=== PATIENT | female | born 1995 | race Caucasian/White ===

== ENCOUNTER → 2018-04-18 10:21 | Outpatient (CLI) | payer MEDICAID, SELFPAY ==
[2018-04-18 11:00] LABS: Basophils % 0.6 % (0.1-2.0); Eosinophils # 0.2 K/mm3 (0.0-0.4); Eosinophils % 2.6 % (0.1-12.0); Hematocrit 45.4 % (37.0-47.0); Hemoglobin 14.7 g/dL (12.2-16.2); Lymphocytes # 2.7 K/mm3 (0.7-4.5); Lymphocytes % 40.3 K/mm3 (10-50); Mean Corpuscular HGB Conc 32.4 g/dL (31.8-35.4); Mean Corpuscular Hemoglobin 29.5 pg (27.0-31.2); Mean Platelet Volume 7.8 fl (7.4-10.4); Monocytes # 0.3 K/mm3 (0.1-1.0); Neutrophils # 3.5 K/mm3 (1.8-7.8); Neutrophils % 52.5 % (37.0-80.0); Platelet Count 262 K/mm3 (142-424); Red Blood Count 4.99 M/mm3 (4.20-5.40); Red Cell Distribution Width 12.6 % (11.5-17.5); White Blood Count 6.7 K/mm3 (4.8-10.8)
[2018-04-18 11:44] LABS: Free Thyroxine Index 2.5 ug/dL (5.93-13.13); T4 (Thyroxine) 7.6 ug/dl (4.7-13.3); Thyroid Stimulating Hormone 1.72 uIU/ml (0.358-3.740); Triiodothryronine (T3) Uptake 33 % (31-39)
== END ==
PROVIDERS: Visit Provider Nurse Practitioner Obstetrics & Gynecology
DX: N92.0 Excessive and frequent menstruation with regular cycle (principal); R10.2 Pelvic and perineal pain
CPT/HCPCS: 36415; 84436; 84443; 84479; 85025

== ENCOUNTER → 2018-04-22 08:59 | Outpatient (CLI) | payer MEDICAID, SELFPAY ==
--- NOTE | 2018-04-22 09:02 | US_ITS ---
US transvaginal HISTORY: Chronic bleeding after childbirth ITS.REASON: US T/V- Pelvic pain ORDERING PHYSICIAN: Bulmaro Nevarez MD PATIENT AGE: 22 years Comparison: None FINDINGS: The uterus measures 7.8 x 3.2 x 4.2 cm with a combined endometrial thickness of 3 mm. No uterine mass evident. The left ovary measures 3.2 x 1.6 cm and contains small follicles. The right ovary is 3 x 2.2 cm also containing small follicles. No cul-de-sac fluid evident. IMPRESSION: 1. Small bilateral ovarian follicles. 2. Otherwise negative pelvic ultrasound
== END ==
PROVIDERS: Family Provider Nurse Practitioner Family; PCP Physician Assistant; Visit Provider Nurse Practitioner Obstetrics & Gynecology
DX: R10.2 Pelvic and perineal pain (principal); R10.9 Unspecified abdominal pain
CPT/HCPCS: 76830

== ENCOUNTER → 2020-01-13 08:25 | Outpatient (CLI) | payer OTHER, SELFPAY ==
--- NOTE | 2020-01-13 08:28 | US_ITS ---
PROCEDURE: US TRANSVAGINAL CLINICAL INDICATION: pelvic pain COMPARISON: TRANVAG US transvaginal from 04/22/2018 FINDINGS: UTERUS: 8cm x 4cmx 3cm with a combined endometrial thickness of 2.8mm LEFT OVARY: 9vsy5oiz3.6cm with a volume of 4.5ml. RIGHT OVARY: [id number] with a volume of 8.9ml. Small bilateral ovarian follicles are noted. No cul-de-sac fluid. There is bilateral ovarian blood flow IMPRESSION: Negative pelvic ultrasound Dictated by: Paul Narvaez MD 01/13/2020 12:49 Electronically signed by Paul Narvaez MD in [place] 01/13/2020 12:49
== END ==
PROVIDERS: PCP Internal Medicine Adolescent Medicine; Visit Provider Nurse Practitioner Obstetrics & Gynecology
DX: R10.2 Pelvic and perineal pain (principal)
CPT/HCPCS: 76830

== ENCOUNTER → 2020-11-14 11:08 | Outpatient (CLI) | payer OTHER, SELFPAY ==
--- NOTE | 2020-11-14 11:14 | US_ITS ---
PROCEDURE: US TRANSVAGINAL CLINICAL INDICATION: US T/V- pelvic pain COMPARISON: US US TRANSVAGINAL from 01/13/2020 FINDINGS: UTERUS: 8cm x 4cmx 3cm with a combined endometrial thickness of 3.6mm LEFT OVARY: 5lby6gos2.2cm with a volume of 3.1ml. RIGHT OVARY: [id number] with a volume of 6.3ml. No adnexal mass. Blood flow is present in both ovaries. No uterine mass. IMPRESSION: Negative pelvic ultrasound Dictated by: Paul Narvaez MD 11/14/2020 19:03 Paul Narvaez MD in [facility] 11/14/2020 19:03
== END ==
PROVIDERS: PCP Internal Medicine Adolescent Medicine; Visit Provider Obstetrics & Gynecology
DX: R10.2 Pelvic and perineal pain (principal)
CPT/HCPCS: 76830

== ENCOUNTER → 2020-12-07 09:32 | Outpatient (CLI) | payer OTHER, SELFPAY ==
[2020-12-07 10:09] LABS: Basophils # 0.1 K/mm3 (0-0.2); Basophils % 0.8 % (0.1-2.0); Eosinophils # 0.2 K/mm3 (0.0-0.4); Eosinophils % 1.8 % (0.1-12.0); Hematocrit 44.1 % (37.0-47.0); Hemoglobin 14.8 g/dL (12.2-16.2); Lymphocytes # 2.9 K/mm3 (0.7-4.5); Lymphocytes % 33.1 % (10-50); Mean Corpuscular HGB Conc 33.5 g/dL (31.8-35.4); Mean Corpuscular Hemoglobin 31.9 pg (27.0-31.2); Mean Corpuscular Volume 95.5 fl (81-99); Mean Platelet Volume 8.1 fl (7.4-10.4); Monocytes # 0.3 K/mm3 (0.1-1.0); Monocytes % 3.4 % (1.7-9.3); Neutrophils # 5.3 K/mm3 (1.8-7.8); Platelet Count 236 K/mm3 (142-424); Red Blood Count 4.62 M/mm3 (4.20-5.40); Red Cell Distribution Width 13.2 % (11.5-17.5); White Blood Count 8.7 K/mm3 (4.8-10.8)
[2020-12-07 10:30] LABS: Chloride 109 mmol/L (98-107)
[2020-12-07 10:31] LABS: Potassium 3.7 mmoL/L (3.5-5.1)
[2020-12-07 10:32] LABS: Sodium 142 mmol/L (136-145)
[2020-12-07 10:33] LABS: Alanine Aminotransferase 18 U/L (12-78); Anion Gap 12.7 mEq/L (5-15); Aspartate Amino Transferase 29 U/L (14-36); Blood Urea Nitrogen 12 mg/dl (7-17); Carbon Dioxide 24 mmol/L (22.0-30.0); Estimated Glomerular Filt Rate 103 ml/min (>60); GFR (African American) 124 ML/MIN (>60)
[2020-12-07 10:34] LABS: Albumin Level 5.1 g/dl (3.5-5.0); Albumin/Globulin Ratio 1.8 (1.1-1.8); Calcium 10.3 mg/dl (8.4-10.2); Globulin 2.8 g/dL (1.3-3.2); Glucose 96 mg/dl (74-100); Total Protein,Serum 7.9 g/dl (6.3-8.2)
[2020-12-07 10:35] LABS: Alkaline Phosphatase 70 U/L (38-126); Bilirubin,Total 0.6 mg/dl (0.2-1.3)
[2020-12-07 10:45] LABS: HCG Qualitative, Serum Negative (Negative)
[2020-12-07 10:51] LABS: Coronavirus 19 IgG Antibody Negative (Negative); Coronavirus 19 IgM Antibody Negative (Negative)
[2020-12-07 11:42] LABS: Amphetamine/Metha Screen,Urine Negative ng/ml (<1000); Barbiturates Screen,Urine Negative ng/ml (<200)
[2020-12-07 11:43] LABS: Benzodiazepines Screen,Urine Negative ng/ml (<200)
[2020-12-07 11:44] LABS: Cannabinoid Screen,Urine Negative ng/ml (<50); Cocaine Screen,Urine Negative ng/ml (<300)
[2020-12-07 11:45] LABS: Methadone Screen,Urine Negative ng/ml (<300); Phencyclidine Screen,Urine Negative ng/ml (<25)
[2020-12-07 11:46] LABS: Opiate Screen,Urine Negative ng/ml (<300)
== END ==
PROVIDERS: Visit Provider Obstetrics & Gynecology
DX: Z01.818 Encounter for other preprocedural examination (principal); Z20.822 Contact with and (suspected) exposure to COVID-19; R10.2 Pelvic and perineal pain; N94.10 Unspecified dyspareunia
CPT/HCPCS: 36415; 80053; 80305; 84703; 85025; 86328

== ENCOUNTER 2020-12-09 08:25 | Day surgery (SDC) | payer OTHER, SELFPAY ==
[2020-12-06 14:06] VITALS: BMI 19.5
[2020-12-09] VITALS (12 sets, daily range): BP systolic 113–151; BP diastolic 69–93; PULSE 72–95; RESP 16–18; TEMP 36.4–43; O2SAT 97–100
--- NOTE | 2020-12-09 09:16 | P.PN_ITS ---
[facility] Anesthesia Checklist - Patient Identification Patient Identification: Arm Band - Structural Data Admitted From: Home Planned Operative Procedure/s: Diagnostic Laparoscopy, Bilateral Tubal Ligation Consent for Planned Operative Procedure(s) Verified: Yes Verified Documents: Surgical Consent, History and Physical - NPO Status Verified Time NPO: 00:00 - Additional verifications Anesthesia Reactions: Yes (pt reports having a hard time coming out of anesthesia) Hx Blood Transfusions: No Blood Transfusion Reaction: No - Airway Assessment C-Spine Mobility Assessed: Yes (mp2) TMJ Mobility Assessed: Yes Dentition: Good Dentition - Neurological Assessment Level of Consciousness: Awake, Alert - Anesthesia Plan Anesthesia Risk discussed: Yes Anesthesia Plan: Verified ASA Class: II Anesthesia Type: General [facility] History I have reviewed the patient's past medical history: Yes Medical History: Reports:: Anxiety, Depression, Migraine Denies:: Cancer, Diabetes Mellitus Type 1, Diabetes Mellitus Type 2, Hyperlipidemia, Hypertension, MRSA, Seizures *Have you ever received a pneumonia vaccine?: No *Have you received a flu vaccine this season?: Yes Other Medical History: Denies: Blood Transfusion Reaction Anesthesia experience/problems:: nac Laterality Cases: Bilateral: Tonsillectomy Amputation: No Fractures: No - *Social History Last grade of school completed: GED Smoking Status: Current every day smoker Tobacco Type: cigarettes # Packs/Day (cigarettes): 1 Alcohol Intake: never Substance Use Type: denies use *Occupational Status:: unemployed *Travel in the last 8 weeks: None - Psychiatric History Pschychiatric History:: Reports:: Anxiety, Depression Family Hx:: Cancer, Diabetes, Thyroid Disorder, Kidney Disease, Hypertension, Substance abuse, Alcoholism, Mental illness, Asthma, Coronary Artery Disease, Heart Attack
--- NOTE | 2020-12-09 12:38 | HMH.OPNOTE ---
Date of procedure: 12/09/20 Pre-op Diagnosis:: 1. Pelvic pain 2. Dyspareunia 3. Undesired fertiliity Post-op Diagnosis:: same Procedure performed:: Diagnostic laparoscopy Bilateral tubal occlusion Surgeon:: Karrie Durham MD WORT EXTRACTOR:: Dirk Whitt Anesthesia: GETA Estimated blood loss (mL): 10 Operative findings:: normal appearing uterus normal appearing ovaries bilaterally normal appearing fallopian tubes bilaterally hypervascularity anterior lower pelvis and bladder no adhesions and no evidence of endometriosis Operative note:: The patient was taken to the operating room and general anesthesia was administered. She was prepped/draped in lithotomy position. A uterine manipulator was placed without difficulty. Gloves were changed and attention was turned to the abdomen. A 5mm skin incision was made in the umbilical fold and the Verees needle was inserted through the peritoneum and into the abdominal cavity in standard fashion. The abdomen was insufflated with CO2 gas. A 5mm non-bladed trocar was inserted directly into the abdominal cavity and appropriate placement was confirmed with the laparoscope. No intra-abdominal injuries occurred during entry into the abdominal cavity, as confirmed visually with the laparoscope. The patient was placed in trendelenburg and a 8mm skin incision was made 2cm above the pubic symphysis. A 8mm non-bladed trocar was inserted under direct visualization, without complication. The uterus was elevated out of the pelvis in order to better visualize the anatomy. A survey of the pelvis and abdomen revealed generally normal pelvic anatomy, with no abnormalities noted with regards to uterus, ovaries and fallopian tubes. The anterior pelvic wall and bladder showed a pronounced increase in vascularity, but there was no evidence of endometriosis and no adhesions noted. No gross abnormalities noted in bowel. The uterus was angled towards the patient right and the left fallopian tube was grasped and a Filshie clip was placed over the tube. The clip was noted to completely occlude the tube. The uterus was then angled towards the patient left, and the right fallopian tube was grasped and a Filshie clip was placed over the tube. The clip was noted to completely occlude the tube. The uterine manipulator was removed. The abdomen was then evacuated of gas and all trocars removed. The skin incisions were closed with Dermabond. The patient tolerated the procedure well. Sponge/lap/needle/instrument counts were correct at conclusion of procedure. She was taken out of lithotomy position and awakened from anesthesia, and was taken to the recovery room in stable condition. Condition: stable Disposition: PACU Specimens:: none Complications:: none
--- NOTE | 2020-12-13 09:14 | HMH.ANESII ---
[facility] Anesthesia Record Part II Discharge Time: 12:04 Destination: Surgical Day Care (OP Surgery) PACU nurse assessment reviewed?: Yes Patient Condition:: Good Anesthesia Complications:: None Swallowing reflex intact?: Yes Cyanosis?: No Blood Pressure: 140/82 Pulse Rate: 83 Temperature: 97.6 F Mental Status: Alert & Oriented Pain level:: 4 Nausea and/or vomitting:: None Intake, IV Amount: 0
[2020-12-13 09:15] VITALS: BP 140/82; PULSE 83; TEMP 36.4
== END 2020-12-09 12:35 | disposition home or self-care (01) ==
LOC: OR 08:28
PROVIDERS: PCP Internal Medicine Adolescent Medicine; Visit Provider Obstetrics & Gynecology
PROC: (CPT 49320; principal; 2020-12-09 09:45)
DX: N94.819 Vulvodynia, unspecified (principal); N91.2 Amenorrhea, unspecified; N94.10 Unspecified dyspareunia; Z30.2 Encounter for sterilization; G43.909 Migraine, unspecified, not intractable, without status migrainosus; F41.9 Anxiety disorder, unspecified; F32.9 Major depressive disorder, single episode, unspecified; Z79.890 Hormone replacement therapy; Z72.0 Tobacco use; Z83.3 Family history of diabetes mellitus; Z83.49 Family history of other endocrine, nutritional and metabolic diseases; Z82.49 Family history of ischemic heart disease and other diseases of the circulatory system
CPT/HCPCS: 58671; 96374; J2405

== ENCOUNTER 2022-07-14 13:26 | Emergency (ER) | payer OTHER, SELFPAY ==
[2022-07-14 14:07] VITALS: BP 100/63; PULSE 103; RESP 15; TEMP 36.5; O2SAT 100; BMI 20.3
[2022-07-14 14:14] LABS: UTC Strep Screen (Rapid) Negative (Negative)
--- NOTE | 2022-07-14 14:21 | EXP.UTC ---
Discharge Plan Disposition Patient Disposition: Home, Self-Care Condition: Good Prescriptions Prescriptions: New amoxicillin [amoxicillin] 500 mg tablet 500 mg PO TID 10 Days Qty: 30 0RF [id number] [Bromfed DM] 2-30-10 mg/5 mL Syrup 5 ml PO Q6H PRN (Reason: Cough) Qty: 240 0RF Referrals Follow up/Referrals: Mario Han MD [Primary Care Provider] - See instructions Activity Restrictions/Add. Instructions Additional Instructions/Restrictions: Drink plenty of fluids. Take tylenol or ibuprofen for pain or fever. Take the medications as directed. Follow up with your regular doctor. GO TO THE ER FOR ANY WORSENING SYMPTOMS Clinical Impressions Clinical Impression: Bronchitis, Pharyngitis Instructions Patient Instructions: DI for Pharyngitis/Tonsillopharyngitis -- Adult Discharge ED Provider: Gilmer Shane [facility] HPI General Stated complaint: Sore throat; cough;congestion Mode of Arrival: Ambulatory Source of Information: Patient Limitations: No Limitations Time Seen by Provider: 07/14/22 13:48 Description of Symptoms (Recalled from Triage Doc. by RN): pt comes in with c/o cough, congestion, sore throat. symptoms began 07/12/22. HEENT Symptoms (Recalled from RN notes): Yes Resp Symptoms (Recalled from RN notes): Yes Skin Symptoms (Recalled from RN notes): No MS Symptoms (Recalled from RN notes): No Functional Status (Recalled from RN notes): n/a History of Present Illness Provider Complaint: She states that for the past 2 days she has had sore throat and malaise. Related Data Previous Rx's Medication Instructions Recorded amoxicillin 500 mg tablet 500 mg PO TID 10 days #30 tabs 07/14/22 [id number]-[id number]-EG 5 ml PO Q6H PRN Cough #240 mL 07/14/22 2 mg-30 mg-10 mg/5 mL oral syrup (Bromfed DM) Allergies Allergy/AdvReac Type Severity Reaction Status Date / Time milk Allergy Bloating Verified 07/14/22 14:10 Worker's Comp Is this a Worker's Comp case?: No PFSH PFSH Social History Smoking Status: Current every day smoker tobacco type: cigarettes packs per day: 1 alcohol intake: never substance use type: denies use current occupational status: unemployed Travel in the last 8 weeks: None ROS Obtained: Yes All systems reviewed & no additional complaints except as documented Constitutional Constitutional: Reports chills and Reports fever(s) Eyes Eyes: Denies eye discharge ENT Ears, Nose, Mouth, and Throat: Reports as per HPI Cardiovascular Cardiovascular: Denies chest pain Respiratory Respiratory: Denies chest congestion and Reports cough Gastrointestinal Gastrointestingal: Reports nausea; Denies abdominal pain, constipation, cramping, diarrhea or vomiting Musculoskeletal Musculoskeletal: Denies arthralgias Integumentary/Breasts Skin/Breast: Denies rash Neurologic Neurologic: Denies paresthesias Physical Exam General General appearance: alert and in no apparent distress Head Head exam: atraumatic, normocephalic and normal inspection Eye Eye exam: Present normal appearance, PERRL and EOMI ENT ENT exam: Present mucous membranes moist and normal external ear exam Expanded ENT Exam TM/Canal exam: Bilateral TM: erythema and bulging Nose exam: Absent sinus tenderness Mouth exam: Present normal external inspection; Absent drooling Teeth exam: Present normal inspection Throat exam: Present tonsillar erythema, tonsillomegaly and tonsillar exudate Neck Neck exam: Present normal inspection, full ROM and trachea midline; Absent tenderness, meningismus or lymphadenopathy Chest Chest inspection: Present normal inspection and symmetric chest wall rise; Absent tenderness Respiratory Respiratory exam: Present normal lung sounds bilaterally; Absent respiratory distress, wheezes or stridor Cardiovascular Cardiovascular exam: Present regular rate and normal rhythm; Absent systolic murmur or
[2022-07-14 14:58] VITALS: BP 100/63; PULSE 103; RESP 15; TEMP 36.5
== END 2022-07-14 15:03 | disposition home or self-care (01) ==
PROVIDERS: Nurse Practitioner Family; Emergency Provider Emergency Medicine; PCP Internal Medicine Adolescent Medicine
DX: J20.9 Acute bronchitis, unspecified (principal); J02.9 Acute pharyngitis, unspecified; F17.210 Nicotine dependence, cigarettes, uncomplicated; Z20.822 Contact with and (suspected) exposure to COVID-19
CPT/HCPCS: 87880; 99212; C9803; G0463; U0003; U0005

== ENCOUNTER 2022-10-21 15:01 | Emergency (ER) | payer OTHER, SELFPAY ==
[2022-10-21 16:50] VITALS: BP 134/78; PULSE 87; RESP 20; TEMP 36.8; O2SAT 98; BMI 18.9
[2022-10-21 16:55] LABS: UTC Influenza A Antigen Negative (Negative); UTC Influenza B Antigen Negative (Negative); UTC Strep Screen (Rapid) Negative (Negative)
--- NOTE | 2022-10-21 17:03 | EXP.UTC ---
Discharge Plan Disposition Patient Disposition: Home, Self-Care Condition: Good Prescriptions Prescriptions: New amoxicillin [amoxicillin] 500 mg tablet 500 mg PO TID 10 Days Qty: 30 0RF benzonatate [benzonatate] 100 mg capsule 100 mg PO TIDP PRN (Reason: Cough) Qty: 30 0RF methylprednisolone 4 mg Tablets,Dose Pack 4 mg PO DIRECTED Qty: 21 0RF Referrals Follow up/Referrals: Mario Han MD [Primary Care Provider] - See instructions Activity Restrictions/Add. Instructions Additional Instructions/Restrictions: Drink plenty of fluids. Take tylenol or ibuprofen for pain or fever. Take the medications as directed. Follow up with your regular doctor. GO TO THE ER FOR ANY WORSENING SYMPTOMS Clinical Impressions Clinical Impression: Pharyngitis, Acute viral syndrome Instructions Patient Instructions: DI for Pharyngitis/Tonsillopharyngitis -- Adult, DI for Viral Syndrome Discharge ED Provider: Prieto Cameron [facility] General Stated complaint: SOA, cough, sore throat Time Seen by Provider: 10/21/22 16:42 History of Present Illness Provider Complaint: She states that for the past 3 days she has had sore throat, chills, fever, cough and malaise. Related Data Previous Rx's Medication Instructions Recorded amoxicillin 500 mg tablet 500 mg PO TID 10 days #30 tabs 10/21/22 benzonatate 100 mg capsule 100 mg PO TIDP PRN Cough #30 caps 10/21/22 methylprednisolone 4 mg tablets in 4 mg PO DIRECTED #21 tabs 10/21/22 a dose pack Allergies Allergy/AdvReac Type Severity Reaction Status Date / Time milk Allergy Bloating Verified 07/14/22 14:10 [facility] Disclaimer: The information contained in this section may have been updated after the patient was seen, as this information can be updated by other users. Medical History Anxiety Cancer Depression Migraine Urinary tract infection Surgical History History of tonsillectomy History of tubal ligation Social History Smoking Status: Current every day smoker tobacco type: cigarettes packs per day: 1 alcohol intake: never substance use type: denies use current occupational status: unemployed Travel in the last 8 weeks: None ROS Obtained: Yes All systems reviewed & no additional complaints except as documented Constitutional Constitutional: Reports chills and Reports fever(s) Eyes Eyes: Denies eye discharge ENT Ears, Nose, Mouth, and Throat: Reports as per HPI Cardiovascular Cardiovascular: Denies chest pain Respiratory Respiratory: Denies chest congestion and Reports cough Gastrointestinal Gastrointestingal: Reports nausea; Denies abdominal pain, constipation, cramping, diarrhea or vomiting Musculoskeletal Musculoskeletal: Denies arthralgias Integumentary/Breasts Skin/Breast: Denies rash Neurologic Neurologic: Denies paresthesias Physical Exam General General appearance: alert and in no apparent distress Head Head exam: atraumatic, normocephalic and normal inspection Eye Eye exam: Present normal appearance, PERRL and EOMI ENT ENT exam: Present mucous membranes moist and normal external ear exam Expanded ENT Exam TM/Canal exam: Bilateral TM: erythema and bulging Nose exam: Absent sinus tenderness Mouth exam: Present normal external inspection; Absent drooling Teeth exam: Present normal inspection Throat exam: Present tonsillar erythema, tonsillomegaly and tonsillar exudate Neck Neck exam: Present normal inspection, full ROM and trachea midline; Absent tenderness, meningismus or lymphadenopathy Chest Chest inspection: Present normal inspection and symmetric chest wall rise; Absent tenderness Respiratory Respiratory exam: Present normal lung sounds bilaterally; Absent respiratory distress, wheezes or stridor Cardiovascular Cardiovascular exam: Present r
[2022-10-21 17:28] VITALS: BP 134/78; PULSE 87; RESP 20; TEMP 36.8; O2SAT 98
[2022-10-21 17:51] LABS: Adenovirus,PCR Not Detected (NotDetected); Bordetella Pertussis Not Detected (NotDetected); Chlamydophila Pneumoniae, PCR Not Detected (NotDetected); Coronavirus 19, PCR Not Detected (NotDetected); Coronavirus 229E Not Detected (NotDetected); Coronavirus NL63 Not Detected (NotDetected); Coronavirus OC43 Not Detected (NotDetected); Coronovirus HKU1,PCR Not Detected (NotDetected); Human Metapneumovirus Not Detected (NotDetected); Influenza A, PCR Not Detected (NotDetected); Influenza AH1, 2009 Not Detected (NotDetected); Influenza AH1, PCR Not Detected (NotDetected); Influenza AH3,PCR Not Detected (NotDetected); Influenza B, PCR Not Detected (NotDetected); Mycoplasma Pneumoniae, PCR Not Detected (NotDetected); Parainfluenza 1, PCR Not Detected (NotDetected); Parainfluenza 2, PCR Not Detected (NotDetected); Parainfluenza 3, PCR Not Detected (NotDetected); Parainfluenza 4, PCR Not Detected (NotDetected); Respiratory Syncytial Virus Not Detected (NotDetected)
[2022-10-22 13:25] LABS: Rhinovirus/Enterovirus Detected (NotDetected)
== END 2022-10-21 17:35 | disposition home or self-care (01) ==
PROVIDERS: Emergency Provider Nurse Practitioner Family; PCP Internal Medicine Adolescent Medicine
DX: J02.9 Acute pharyngitis, unspecified (principal); B34.9 Viral infection, unspecified
CPT/HCPCS: 87581; 87632; 87798; 87804; 87880; 99212; 99213; C9803; G0463; U0003; U0005

== ENCOUNTER 2023-05-28 20:48 | Emergency (ER) | payer SELFPAY ==
[2023-05-28 20:49] VITALS: BP 134/98; PULSE 98; RESP 18; TEMP 36.7; O2SAT 100
[2023-05-28 21:00] VITALS: BP 134/98; PULSE 114; RESP 18; O2SAT 100
--- NOTE | 2023-05-28 22:17 | PC.NURSE ---
ROUNDED ON PT NOTHING NEEDED,CALL LIGHT AT BS
[2023-05-28 22:33] VITALS: BP 115/72; PULSE 74; RESP 18; TEMP 36.6; O2SAT 100
--- NOTE | 2023-05-31 00:47 | HMH.EDGENADL ---
Discharge Plan Disposition Patient Disposition: Home, Self-Care Condition: Good Prescriptions Prescriptions: New sulfamethoxazole-trimethoprim 800-160 mg tablet 1 tab PO BID 5 Days Qty: 10 0RF No Action amoxicillin [amoxicillin] 500 mg tablet 500 mg PO TID 10 Days Qty: 30 0RF benzonatate [benzonatate] 100 mg capsule 100 mg PO TIDP PRN (Reason: Cough) Qty: 30 0RF methylprednisolone 4 mg Tablets,Dose Pack 4 mg PO DIRECTED Qty: 21 0RF Referrals Follow up/Referrals: Mario Han MD [Primary Care Provider] - See instructions Activity Restrictions/Add. Instructions Additional Instructions/Restrictions: Please follow-up with your primary care provider. Please return to the emergency department if you develop any new or worsening symptoms or become concerned for your health. Please take Bactrim as prescribed for coverage of your thumb infection. Clinical Impressions Clinical Impression: Cellulitis and abscess of finger, unspecified Instructions Patient Instructions: DI for Skin Abscess Discharge ED Provider: Brett Tobias Adult [facility] General Chief complaint: Skin/Abscess/Foreign Body Stated complaint: spot on thumb Time Seen by Provider: 05/28/23 21:05 Mode of Arrival: Ambulatory Source of Information: Patient Limitations: No Limitations Description of Symptoms (Recalled from ER Triage Doc. by RN): The pt states that about she noticed something in her right thumb and that she figured that it wouls work its self out. the pt states that now it is swollen and feels like alot of pressure and that there is a stabbing sharp pain that runs through to her elbow History of Present Illness HPI narrative: 27-year-old female presents with right thumb pain, erythema, swelling. This has been ongoing for the last couple of days. She reports no injury. Reports that it started as a black dot on the thumb pad and has proceeded to worsen. She reports pain that sometimes shoots up her thumb. She reports that she has had an abscess on her finger before, she is unsure why this has happened repeatedly. She denies any other significant medical history. Related Data Previous Rx's Medication Instructions Recorded amoxicillin 500 mg tablet 500 mg PO TID 10 days #30 tabs 10/21/22 benzonatate 100 mg capsule 100 mg PO TIDP PRN Cough #30 caps 10/21/22 methylprednisolone 4 mg tablets in 4 mg PO DIRECTED #21 tabs 10/21/22 a dose pack sulfamethoxazole 800 1 tab PO BID 5 days #10 tabs 05/28/23 mg-trimethoprim 160 mg tablet Allergies Allergy/AdvReac Type Severity Reaction Status Date / Time milk Allergy Bloating Verified 07/14/22 14:10 [facility] Disclaimer: The information contained in this section may have been updated after the patient was seen, as this information can be updated by other users. Medical History Anxiety Cancer Depression Migraine Urinary tract infection Surgical History History of tonsillectomy History of tubal ligation Social History Smoking Status: Current every day smoker tobacco type: cigarettes packs per day: 1 alcohol intake: never substance use type: denies use current occupational status: unemployed Travel in the last 8 weeks: None ROS Obtained: Yes All systems reviewed & no additional complaints except as documented Physical Exam General General appearance: alert and in no apparent distress Head Head exam: atraumatic and normocephalic Eye Eye exam: Present normal appearance, PERRL and EOMI ENT ENT exam: Present normal oropharynx and normal external ear exam Neck Neck exam: Present normal inspection and full ROM Chest Chest inspection: Present normal inspection and symmetric chest wall rise; Absent tenderness Respiratory Respiratory exam: Present normal lung sounds bilaterally;
== END 2023-05-28 22:43 | disposition home or self-care (01) ==
PROVIDERS: Emergency Provider Emergency Medicine; PCP Internal Medicine Adolescent Medicine
DX: F41.9 Anxiety disorder, unspecified (principal); L03.113 Cellulitis of right upper limb; F32.A Depression, unspecified; F17.210 Nicotine dependence, cigarettes, uncomplicated
CPT/HCPCS: 10060; 99283

== ENCOUNTER 2023-05-31 18:16 | Emergency (ER) | payer SELFPAY ==
[2023-05-31 18:35] VITALS: BP 128/88; PULSE 100; RESP 20; TEMP 36.8; O2SAT 100; BMI 19.4
--- NOTE | 2023-05-31 18:56 | EXP.UTC ---
Discharge Plan Disposition Patient Disposition: Home, Self-Care Prescriptions Prescriptions: No Action sulfamethoxazole-trimethoprim 800-160 mg tablet 1 tab PO BID 5 Days Qty: 10 0RF amoxicillin [amoxicillin] 500 mg tablet 500 mg PO TID 10 Days Qty: 30 0RF benzonatate [benzonatate] 100 mg capsule 100 mg PO TIDP PRN (Reason: Cough) Qty: 30 0RF methylprednisolone 4 mg Tablets,Dose Pack 4 mg PO DIRECTED Qty: 21 0RF Referrals Follow up/Referrals: Mario Han MD [Primary Care Provider] - See instructions Activity Restrictions/Add. Instructions Additional Instructions/Restrictions: Please bead picker antibiotic from the pharmacy. Dose of antibiotic given tonight as pharmacy is closed. If there is an issue getting your medication, please call and let us know. Call primary care for a follow up appointment on Saturday. If symptoms worsen return to the ER. Clinical Impressions Clinical Impression: Cellulitis and abscess of finger, unspecified Instructions Patient Instructions: DI for Cellulitis -- Adult, How To Perform RICE (Rest, Ice, Compress, Elevate) Discharge ED Provider: Anny Lovell [facility] General Stated complaint: Right thumb pain Mode of Arrival: Ambulatory Source of Information: Patient Limitations: No Limitations Time Seen by Provider: 05/31/23 19:00 Description of Symptoms (Recalled from Triage Doc. by RN): PATIENT C/O REDNESS AND SWELLING TO RIGHT THUMB THAT STARTED LAST SATURDAY. SHE STATES SHE WAS SEEN IN ER ON 05/28 AND HER THUMB WAS LANCED AND SHE WAS GIVEN AN ORAL ANTIBIOTIC. 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 SHE STATES SHE WAS SEEN IN ER ON 05/28 AND HER THUMB WAS LANCED AND SHE WAS GIVEN AN ORAL ANTIBIOTIC. 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 She states that she now has her insurance straightened out. Reports pharmacy would not let her pay grace for her medication. She states that she feels like she has had a low grade fever and been nauseated today. Related Data Previous Rx's Medication Instructions Recorded amoxicillin 500 mg tablet 500 mg PO TID 10 days #30 tabs 10/21/22 benzonatate 100 mg capsule 100 mg PO TIDP PRN Cough #30 caps 10/21/22 methylprednisolone 4 mg tablets in 4 mg PO DIRECTED #21 tabs 10/21/22 a dose pack sulfamethoxazole 800 1 tab PO BID 5 days #10 tabs 05/28/23 mg-trimethoprim 160 mg tablet Allergies Allergy/AdvReac Type Severity Reaction Status Date / Time milk Allergy Bloating Verified 07/14/22 14:10 Worker's Comp Is this a Worker's Comp case?: No [facility] Disclaimer: The information contained in this section may have been updated after the patient was seen, as this information can be updated by other users. Medical History Anxiety Cancer Depression Migraine Urinary tract infection Surgical History History of tonsillectomy History of tubal ligation Social History Smoking Status: Current every day smoker tobacco type: cigarettes packs per day: 1 alcohol intake: never substance use type: denies use current occupational status: unemployed Travel in the last 8 weeks: None ROS Obtained: Yes All systems reviewed & no additional complaints except as documented Constitutional Constitutional: Reports system reviewed and no additional complaints, except as documented and Reports malaise Eyes Eyes: Reports system reviewed
[2023-05-31 18:59] VITALS: BP 128/88; PULSE 100; RESP 20; TEMP 36.8; O2SAT 100
== END 2023-05-31 19:08 | disposition home or self-care (01) ==
PROVIDERS: Emergency Provider Nurse Practitioner Family; PCP Internal Medicine Adolescent Medicine
DX: L02.511 Cutaneous abscess of right hand (principal); L03.011 Cellulitis of right finger; F17.210 Nicotine dependence, cigarettes, uncomplicated; F41.9 Anxiety disorder, unspecified; F32.A Depression, unspecified
CPT/HCPCS: 99212; 99213; G0463

== ENCOUNTER 2024-04-01 14:07 | Emergency (ER) | payer SELFPAY ==
[2024-04-01 14:08] VITALS: BP 134/92; PULSE 110; RESP 18; TEMP 36.8; O2SAT 97; BMI 22.1
--- NOTE | 2024-04-01 14:29 | ED_ITS ---
<Statement entered by Christopher Durham MD - 04/02/24 07:13> I was consulted by the CAMILO, and we discussed the complexity of the problems being addressed. I approved the treatment and management plan for this patient's care in the emergency department, thus performing a substantive portion of the medical decision making. Christopher Durham MD, JENNA, FACEP Discharge Plan Disposition Patient Disposition: Home, Self-Care Condition: Good Prescriptions Prescriptions: New cephalexin 500 mg capsule 500 mg PO BID 10 Days Qty: 20 0RF No Action sulfamethoxazole-trimethoprim 800-160 mg tablet 1 tab PO BID 5 Days Qty: 10 0RF amoxicillin [amoxicillin] 500 mg tablet 500 mg PO TID 10 Days Qty: 30 0RF benzonatate [benzonatate] 100 mg capsule 100 mg PO TIDP PRN (Reason: Cough) Qty: 30 0RF methylprednisolone 4 mg Tablets,Dose Pack 4 mg PO DIRECTED Qty: 21 0RF Referrals Follow up/Referrals: Mario Han MD [Primary Care Provider] - See instructions Activity Restrictions/Add. Instructions Additional Instructions/Restrictions: There was no foreign body found on your x-rays. This is likely developing cellulitis. I have sent a prescription into your pharmacy. Please follow-up with your PCP. Return to ER for any worsening signs or symptoms as needed. Clinical Impressions Clinical Impression: Cellulitis Qualifiers: Site of cellulitis: extremity Site of cellulitis of extremity: upper extremity Laterality: right Qualified Code(s): L03.113 - Cellulitis of right upper limb Instructions Patient Instructions: Cellulitis Discharge ED Provider: Christopher Durham General Adult HPI General Chief complaint: Skin/Abscess/Foreign Body Stated complaint: Pain and swelling in thumb through R elbow Time Seen by Provider: 04/01/24 14:29 Mode of Arrival: Ambulatory Limitations: No Limitations Description of Symptoms (Recalled from ER Triage Doc. by RN): PT C/O PAIN AND SWELLING TO RIGHT THUMB, HAND AND WRIST. STATES SHE WAS HOLDING A PIECE OF METAL WHILE SOMEONE WAS FILING. FEELS LIKE SHE HAS METAL SHAVINGS IN HAND AND THUMB. HAS HAD PREVIOUS CELLULITIS TO SAME THUMB History of Present Illness HPI narrative: Patient presents for evaluation of pain and swelling of the right hand. Patient states that she was holding a piece of steel while it was being filed down and got metal shards into her right hand. That is her dominant hand. Patient states that she was able to get 1 piece out that was located at the DIP of her thumb however she feels like there is still a piece left at the thenar eminence. Patient also reports that she started noticed redness spreading up her arm on the thumb side of her right forearm. She denies chest pain shortness of breath fever chills hemoptysis hematochezia melena nausea vomit diarrhea. Related Data Previous Rx's Medication Instructions Recorded amoxicillin 500 mg tablet 500 mg PO TID 10 days #30 tabs 10/21/22 benzonatate 100 mg capsule 100 mg PO TIDP PRN Cough #30 caps 10/21/22 methylprednisolone 4 mg tablets in 4 mg PO DIRECTED #21 tabs 10/21/22 a dose pack sulfamethoxazole 800 1 tab PO BID 5 days #10 tabs 05/28/23 mg-trimethoprim 160 mg tablet cephalexin 500 mg capsule 500 mg PO BID 10 days #20 caps 04/01/24 Allergies Allergy/AdvReac Type Severity Reaction Status Date / Time milk Allergy Bloating Verified 07/14/22 14:10 [facility] Disclaimer: The information contained in this section may have been updated after the patient was seen, as this information can be updated by other users. Medical History Anxiety Cancer Depression Migraine Urinary tract infection Surgical History History of tonsillectomy History of tubal ligation Social History Smoking Status: Current every day smoker tobacco type: cigarettes packs per day: 1 alcohol intake: never substance use type: denies use current occupational status: unemployed Travel in the last 8 weeks: None ROS Obtained: Yes Systems reviewed as appropriate & no additional complaints except as documented Physical Exam General General appearance: alert and in no apparent distress Respiratory Respiratory exam: Present normal lung sounds bilaterally Cardiovascular Cardiovascular exam: Present regular rate Neurological Exam Neurological exam: Present alert and oriented X3 Other Other exam information: Patient has a previously avulsed distal thumb deformity that appears to be well- healed. Just proximal to that she has an area that shows where the patient had a metal shard that she was able to remove herself. There is no evidence of erythema edema or fluctuance currently. It is located on the palmar surface mid thumb pad. More proximal to this patient has an area that shows a very small area of redness without fluctuance on the thenar eminence. Across the wrist along the radial aspect she has a small area of lymphangitis which the borders have been marked by myself with an ink pen. It does not spread across the elbow joint. There is no evidence of fluctuance palpable foreign body. Patient is neurovascularly intact distally in the right upper extremity. Medical Decision Making Johnathan Inquiry Pt receiving controlled substance: No Vital Signs: 04/01/24 14:08 04/01/24 15:39 Temperature 98.3 F 98.0 F Temperature Source Oral Pulse Rate 70 Pulse Rate [Radial] 110 H Respiratory Rate 18 13 Blood Pressure 122/71 Blood Pressure [Left Arm] 134/92 H Blood Pressure Mean [Left Arm] 106 Blood Pressure Source [Left Arm] Automatic Cuff Blood Pressure Position [Left Arm] Sitting 02 Sat by Pulse Oximetry 97 Oxygen Delivery Method Room Air Room Air Lab Data Lab Results 04/01/24 15:08: WBC 10.4, RBC 4.83, Hgb 15.8, Hct 46.8, MCV 97.0, MCH 32.7 H, MCHC 33.7, RDW 13.2, Plt Count 341, MPV 7.5, Neut % (Auto) 68.7, Lymph % (Auto) 25.4, Mcminn % (Auto) 3.9, Eos % (Auto) 0.7, Baso % (Auto) 1.3, Neut # (Auto) 7.2, Lymph # (Auto) 2.7, Mcminn # (Auto) 0.4, Eos # (Auto) 0.1, Baso # (Auto) 0.1, Sodium 137, Potassium 3.3 L, Chloride 101, Carbon Dioxide 26, Anion Gap 13.3, BUN 17, Creatinine 0.80, Estimated Creat Clear 94, Estimated GFR 85, Est GFR ( Amer) 103, Glucose 96, Calcium 10.0 04/01/24 15:08 04/01/24 15:08 Orders (Tests/Meds): ED MEDICATIONS Discontinued Medications Generic Name Dose Route Start Last Admin Trade Name Freq PRN Reason Stop Dose Admin Cephalexin HCl 500 mg 04/01/24 14:44 06/12/24 15:00 Cephalexin 500mg Capsule PO 04/01/24 14:45 500 mg ONCE ONE Administration ORDERS Category Date Time Status XR hand RT min 3V Stat Exams 04/01/24 14:37 Completed BMP [Basic Metabolic Panel] Stat Lab 04/01/24 15:08 Completed CBC w/Auto Diff [Complete Blood Count Auto Diff] Stat Lab 04/01/24 15:08 Completed Medical Decision Narrative: In summary patient is a 28-year-old female who presents to the emergency department for evaluation of possible foreign body and arm redness. Patient is hemodynamically stable upon arrival, afebrile. Physical exam is remarkable for multiple body wide excoriations that shows no evidence of infection. More specifically patient has a previously avulsed distal tip of her right thumb and evidence of a previously removed foreign body in the pad. Patient has a small area in the thenar eminence that she feels still contains a small foreign body but shows no evidence of ecchymosis edema erythema or fluctuance. On the radial aspect of her forearm she has streaking redness that is been marked by myself with an ink pen and is limited to the lateral aspect of her forearm. Patient is neurovascular intact distally. Differential diagnosis includes cellulitis versus lymphangitis versus foreign body. Initial workup will be conducted with hematologic labs and plain film x-ray. Initial interventions include Tylenol Toradol Keflex p.o. Initial workup reviewed by me shows her hematologic labs are nonactionable including normal white count with no shift and my informal interpretation of her plain film x-rays prior to radiology read shows no foreign body. It does show previously avulsed tip of her right thumb with probable bony avulsion as well.. Upon repeat evaluation patient reported improvement in her constitutional symptoms after initial intervention. Given this patient is appropriate for discharge with a prescription for Keflex which is already been electronically transmitted and first dose given here. Critical Care Critical Care Time Critical Care Time: No
--- NOTE | 2024-04-01 14:37 | XR_ITS ---
FINAL REPORT CLINICAL HISTORY: r/o Foreign body to her right hand possible metal fragment in thumb and hand COMPARISON: None FINDINGS: RIGHT HAND Three views demonstrate no acute fracture or dislocation. There is bony deformity of the tip of the 1st distal phalanx. No other acute bony abnormality is seen. The visualized joint spaces are normally aligned. Soft tissue swelling is noted of the thumb. There is no evidence of radiopaque foreign body. IMPRESSION: Bony deformity tip of the 1st distal phalanx. No evidence of radiopaque foreign body. Reviewed, Interpreted and Dictated by Ken Garcia III, MD Transcribed by Ekta Rao Authenticated and . [facility]
--- NOTE | 2024-04-01 14:55 | PC.NURSE ---
PT TO XR
[2024-04-01] MEDS: cephALEXin 500MG CAPSULE 500 MG PO (15:00)
[2024-04-01 15:20] LABS: Basophils # 0.1 K/mm3 (0-0.2); Basophils % 1.3 % (0.1-2.0); Chloride 101 mmol/L (98-107); Eosinophils # 0.1 K/mm3 (0.0-0.4); Eosinophils % 0.7 % (0.1-12.0); Hematocrit 46.8 % (37.0-47.0); Hemoglobin 15.8 g/dL (12.2-16.2); Lymphocytes # 2.7 K/mm3 (0.7-4.5); Lymphocytes % 25.4 % (10-50); Mean Corpuscular HGB Conc 33.7 g/dL (31.8-35.4); Mean Corpuscular Hemoglobin 32.7 pg (27.0-31.2); Mean Platelet Volume 7.5 fl (7.4-10.4); Monocytes # 0.4 K/mm3 (0.1-1.0); Monocytes % 3.9 % (1.7-9.3); Neutrophils # 7.2 K/mm3 (1.8-7.8); Neutrophils % 68.7 % (37.0-80.0); Platelet Count 341 K/mm3 (142-424); Potassium 3.3 mmoL/L (3.5-5.1); Red Blood Count 4.83 M/mm3 (4.20-5.40); Red Cell Distribution Width 13.2 % (11.5-17.5); Sodium 137 mmol/L (136-145); White Blood Count 10.4 K/mm3 (4.8-10.8)
[2024-04-01 15:23] LABS: Anion Gap 13.3 mEq/L (5-15); Blood Urea Nitrogen 17 mg/dl (7-17); Carbon Dioxide 26 mmol/L (22.0-30.0); Creatinine Clearance Estimated 94 mL/min (50-200); Estimated Glomerular Filt Rate 85 ml/min (>60); GFR (African American) 103 ML/MIN (>60); Glucose 96 mg/dl (74-100)
[2024-04-01 15:39] VITALS: BP 122/71; PULSE 70; RESP 13; TEMP 36.7
== END 2024-04-01 15:39 | disposition home or self-care (01) ==
PROVIDERS: Physician Assistant; Emergency Provider Student in an Organized Health Care Education/Training Program; PCP Internal Medicine Adolescent Medicine
DX: L03.113 Cellulitis of right upper limb (principal); F17.210 Nicotine dependence, cigarettes, uncomplicated
CPT/HCPCS: 73130; 80048; 85025; 99283